=== PATIENT | female | born 1995 | race Caucasian/White ===

== ENCOUNTER 2019-04-29 01:22 | Outpatient (CLI) | payer BC ==
[2019-04-29 02:24] LABS: APPEARANCE,URINE CLOUDY; BILIRUBIN,URINE NEGATIVE (NEGATIVE); COLOR,URINE YELLOW; GLUCOSE, URINE NEGATIVE (NEGATIVE); KETONES,URINE NEGATIVE (NEGATIVE); LEUKOCYTE ESTERASE,URINE MODERATE (NEGATIVE); NITRITE,URINE NEGATIVE (NEGATIVE); PROTEIN,URINE NEGATIVE (NEGATIVE); URINE SPECIFIC GRAVITY 1.015; UROBILINOGEN,URINE NEGATIVE mg/dL (<2.0)
[2019-04-29 02:43] LABS: URINE AMPHETAMINES SCREEN NEGATIVE; URINE BARBITURATES SCREEN NEGATIVE; URINE BENZODIAZEPINES SCREEN NEGATIVE; URINE COCAINE SCREEN NEGATIVE; URINE MARIJUANA (THC) SCREEN NEGATIVE; URINE METHADONE SCREEN NEGATIVE; URINE PHENCYCLIDINE SCREEN NEGATIVE
[2019-04-29 02:53] LABS: T.VAGINALIS (WET MOUNT) NO TRICHOMONAS SEEN; YEAST (WET MOUNT) NO YEAST SEEN
[2019-04-29 02:54] LABS: EPITHELIALS (WET MOUNT) 3+ EPITHELIALS SEEN; RBCS (WET MOUNT) NO RBCS SEEN; WBCS (WET MOUNT) 1+ WBCS SEEN
[2019-04-29] MEDS ORDERED: HYDROXYZINE PAMOATE 50 MG CAPSULE ONE (03:37)
[2019-04-29] MEDS ORDERED: RINGERS SOLUTION,LACTATED 1,000 ML IV PRN (03:37)
[2019-04-29] MEDS ORDERED: HYDROXYZINE PAMOATE 50 MG CAPSULE PO ONE (04:00)
[2019-04-29 04:25] LABS: CHLAM PCR NOT DETECTED (NOT DETECT)
--- NOTE | 2019-04-29 07:22 | RADIOLOGY REPORT (SQ) ---
EXAM DESCRIPTION: US LIMITED COMPLETED DATE/TME: 04/29/2019 00:00 CLINICAL HISTORY: 23 years Female, R/O PTL 19w5d Comparison: None. TECHNIQUE/LIMITATION: Targeted OB sonogram for requested parameters only. Transabdominal and transvaginal. FINDINGS: Single IUP Cardiac activity: 171-bpm. EDISON: 13.1-cm Placenta: Anterior.. No demonstrated abruption or previa. Presentation: Vertex. Cervical length: 4.7-cm. Closed appearance. IMPRESSION: Targeted OB sonogram for requested parameters
== END 2019-04-29 06:32 | disposition home or self-care (01) ==
LOC: LC 01:22
PROVIDERS: ATTEND Student in an Organized Health Care Education/Training Program
PROC: 4A1HXCZ Monitoring of Products of Conception, Cardiac Rate, External Approach (ICD-10-PCS; principal; 2019-04-29)
DX: O47.02 False labor before 37 completed weeks of gestation, second trimester (principal); Z3A.19 19 weeks gestation of pregnancy
CPT/HCPCS: 76815; 80307; 81001; 87086; 87088; 87210; 87491; 87591

== ENCOUNTER 2019-09-08 09:16 | Inpatient (IN) | payer BC ==
[2019-09-08 09:44] LABS: APPEARANCE,URINE CLEAR; BILIRUBIN,URINE NEGATIVE (NEGATIVE); COLOR,URINE STRAW; GLUCOSE, URINE NEGATIVE (NEGATIVE); KETONES,URINE NEGATIVE (NEGATIVE); LEUKOCYTE ESTERASE,URINE NEGATIVE (NEGATIVE); NITRITE,URINE NEGATIVE (NEGATIVE); PROTEIN,URINE NEGATIVE (NEGATIVE); URINE SPECIFIC GRAVITY 1.006; UROBILINOGEN,URINE NEGATIVE mg/dL (<2.0)
[2019-09-08] MEDS ORDERED: RINGERS SOLUTION,LACTATED 1,000 ML IV PRN (09:49)
[2019-09-08 10:06] LABS: URINE AMPHETAMINES SCREEN NEGATIVE; URINE BARBITURATES SCREEN NEGATIVE; URINE BENZODIAZEPINES SCREEN NEGATIVE; URINE COCAINE SCREEN NEGATIVE; URINE MARIJUANA (THC) SCREEN NEGATIVE; URINE METHADONE SCREEN NEGATIVE; URINE PHENCYCLIDINE SCREEN NEGATIVE
--- NOTE | 2019-09-08 10:17 | Admission Physical ---
Datetime Report Generated by CPN: 09/08/2019 10:17 CURRENT ADMISSION Chief Complaint: Uterine Contractions; Suspected Ruptured Membranes; Decreased Movement Admit Impression : Term, Intrauterine ; Active Labor; Ruptured Membranes Admit Plan: Admit to Unit; Initiate Labor Protocol ALLERGIES Medication Allergies: No Medication Allergies: No Known Allergies (04/29/2019) Latex: No Latex Allergies OBSTETRICAL HISTORY EDC: 09/18/2019 00:00 : 2 Para: 1 Term: 1 SAB: 0 IAB: 0 Ectopic: 0 Livin Cesareans: 0 VBACs: 0 Multiple Births: 0 Gestational Diabetes: No Rh Sensitization: No Incompetent Cervix: No HUGO: No Infertility: No ART Treatment: No Uterine Anomaly: No IUGR: No Hx Previous C/S: No Macrosomia: No Hx Loss/Stillborn: No PIH: Yes Hx : No Placenta Previa/Abruption: No Depression/PP Depression: No PTL/PROM: No Post Hemorrhage: No Current Procedures: Ultrasound Obstetrical History Comments: G1- at 37 weeks, 5lbs 6oz male with gastroschesis G2- current SEE RECORDS Alcohol: No Marijuana : No Cocaine: No Other Illicit Drugs: No Cigarettes: Never Smoker. [id number] MEDICAL HISTORY Diabetes: No Blood Transfusion: No Pulmonary Disease (Asthma, TB): No Breast Disease: No Hypertension: No Crusher Feeder Surgery: No Heart Disease: No Hosp/Surgery: Yes Autoimmune Disorder: No Anesthetic Complications: No Kidney Disease: No Abnormal Pap Smear: No Neuro/Epilepsy: No Psychiatric Disorders: No Other Medical Diseases: No Hepatitis/Liver Disease: No Significant Family History: No Varicosities/Phlebitis: No Trauma/Violence : No Thyroid Dysfunction: No Medical History Comments: Childbirth PRK-eye surgery INFECTIOUS HISTORY Gonorrhea: No Genital Herpes: No Chlamydia: No Tuberculosis: No Syphilis: No Hepatitis: No HIV/AIDS Exposure: No Rash or Viral Illness: No HPV: No PHYSICAL EXAM General: Normal HEENT: Normal Neurologic: Normal Thyroid: Normal Heart: Normal Lungs: Normal Breast: Normal Back: Normal Abdomen: Normal Genitourinary Exam: Normal Extremities: Normal DTRs: Normal Pelvic Type: Adequate Vital Signs: Reviewed; Within Normal Limits VAGINAL EXAM Dilatation: 6 Effacement: 90 Station: -2 Contraction Comments: q2 MEMBRANES Pooling: Positive Membranes: Ruptured Amniotic Fluid Color: Clear FETUS A EGA: 38.4 Monitoring: External US FHR- Baseline: 125 Variability: Moderate 6-25bpm Accelerations: 15X15 Decelerations: None FHR Category: Category I Admit Comment: Pt presents via medica c/o having a gush of fluid at 0825. at 39 wks, GBS negative. SSE, +pooling noted of clear fluid. VE 6/90/-2, vtx. EFW 7 pounds. Pt considering an epidural. Position changes encouraged. Anticipate . Attending MD is Dr Gibbons. INFORMED CONSENT Assignment: Marychuy Gibbons MD Signature: with User ID: Brown : with User ID: Brown
[2019-09-08 10:23] LABS: ABSOLUTE EOSINOPHILS # (AUTO) 0.1 10^3/uL (0.0-0.6); ABSOLUTE LYMPHOCYTES (AUTO) 1.9 10^3/uL (0.5-4.7); ABSOLUTE MONOCYTES (AUTO) 0.6 10^3/uL (0.1-1.4); ABSOLUTE NEUT (AUTO) 6.9 10^3/uL (1.7-8.2); BASOPHILS % (AUTO) 0.3 % (0-2); EOSINOPHILS % (AUTO) 1.2 % (0-6); HEMATOCRIT 30.7 % (36.0-47.0); HEMOGLOBIN 10.6 g/dL (12.0-15.5); LYMPHOCYTES % (AUTO) 19.9 % (13-45); MEAN CORPUSCULAR HEMOGLOBIN 27.9 pg (27.0-33.4); MEAN CORPUSCULAR HGB CONC 34.7 g/dL (32.0-36.0); MEAN CORPUSCULAR VOLUME 80 fl (80-97); MONOCYTES % (AUTO) 6.1 % (3-13); PLATELET COUNT 252 10^3/uL (150-450); RED BLOOD COUNT 3.82 10^6/uL (3.72-5.28); RED CELL DISTRIBUTION WIDTH 14.4 % (11.5-14.0); SEGMENTED NEUTROPHILS % (AUTO) 72.5 % (42-78); TOTAL CELLS COUNTED % (AUTO) 100 %; WHITE BLOOD COUNT 9.5 10^3/uL (4.0-10.5)
[2019-09-08] MEDS ORDERED: OXYTOCIN 10 UNIT/ML VIAL ONE (10:52)
[2019-09-08] MEDS ORDERED: MISOPROSTOL 0.2 MG TABLET ONE (10:52)
[2019-09-08] MEDS ORDERED: OXYTOCIN/0.9 % SODIUM CHLORIDE 30 UNIT/500 ML RTUINJ ONE (10:52)
[2019-09-08] MEDS ORDERED: LIDOCAINE 1% INJ-PF (10 MG/ML) 30 ML SDV ONE (10:52)
[2019-09-08] MEDS ORDERED: EPHEDRINE SULFATE INJ 50 MG/1 ML AMPULE ONE (12:02)
[2019-09-08] MEDS ORDERED: FENTANYL/BUPIVACAINE/NS/PF 300 MCG/150 ML RTUINJ EPI ONE (12:02)
[2019-09-08] MEDS ORDERED: BUPIVACAINE HCL 0.25 % INJ/PF (2.5 MG/1 ML) 30 ML VIAL ONE (12:02)
[2019-09-08] MEDS ORDERED: PSEUDOEPHEDRINE HCL 30 MG TABLET PO PRN (13:47)
[2019-09-08] MEDS ORDERED: MAGNESIUM HYDROXIDE SUSP 30 ML UDCUP PO PRN (13:47)
[2019-09-08] MEDS ORDERED: ACETAMINOPHEN 650 MG SUPP.RECT PR PRN (13:47)
[2019-09-08] MEDS ORDERED: BENZOCAINE/MENTHOL AEROSOL SPRAY 56 ML TOP PRN (13:47)
[2019-09-08] MEDS ORDERED: DIPHENHYDRAMINE HCL 25 MG CAPSULE PO PRN (13:47)
[2019-09-08] MEDS ORDERED: PROMETHAZINE HCL 25 MG SUPP.RECT PR PRN (13:47)
[2019-09-08] MEDS ORDERED: NA PHOS,M-B/NA PHOS,DI-BA (ADULT) 133 ML ENEMA PR PRN (13:47)
[2019-09-08] MEDS ORDERED: ACETAMINOPHEN WITH CODEINE #3 TABLET PO PRN ×2 (13:47)
[2019-09-08] MEDS ORDERED: ZOLPIDEM TARTRATE 5 MG TABLET PO PRN (13:47)
[2019-09-08] MEDS ORDERED: GLYCERIN/WITCH HAZEL LEAF 1 EACH MED..WIPE TP PRN (13:47)
[2019-09-08] MEDS ORDERED: DIBUCAINE 1% OINTMENT 28 GM TP PRN (13:47)
[2019-09-08] MEDS ORDERED: MEASLES,MUMPS&RUBELLA VACC/PF 0.5 ML VIAL SUBCUT PRN (13:47)
[2019-09-08] MEDS ORDERED: ACETAMINOPHEN 325 MG TABLET PO PRN (13:47)
[2019-09-08] MEDS ORDERED: DIPH/PERTUSS(ACELL)/TETANUS VAC/PF 0.5 ML SYR (>=10YO) IM PRN (13:47)
[2019-09-08] MEDS ORDERED: PROMETHAZINE HCL 25 MG TABLET PO PRN (13:47)
[2019-09-08] MEDS ORDERED: PROMETHAZINE HCL INJ 25 MG/1 ML VIAL IV PRN (13:47)
[2019-09-08] MEDS ORDERED: IBUPROFEN 800 MG TABLET ONE (13:51)
[2019-09-08] MEDS: IBUPROFEN 800 MG TABLET PO SCH ×2 (16:36→22:05)
[2019-09-08] MEDS: FERROUS SULFATE 325 MG TABLET PO SCH (17:21)
[2019-09-08] MEDS: DOCUSATE SODIUM 100 MG CAPSULE PO SCH (17:22)
--- NOTE | 2019-09-08 17:44 | Delivery Summary ---
Del Sum A-C Datetime Report Generated by CPN: 09/08/2019 17:44 DELIVERY PERSONNEL DELIVERY PERSONNEL: [id number] Delivery Doctor:: Marychuy Gibbons MD Labor and Delivery Nurse:: Laura Burton RNhydraulic dredge operator Nurse:: CAMILLE Finch Nursery Nurse:: Aydee Purdy RN Pack Operator/PULL OVER MACHINE OPERATOR: Maria M Rushing, TAX CONSULTANT MATERNAL INFORMATION Delivery Anesthesia: Epidural Medications After Delivery: Pitocin Bolus-Please Comment; Pitocin 30 Units in 500ml NS/D5W Meds After Delivery Comment: pitocin 30 units in 500 ml NS Estimated Blood Loss (ml): 100 Delivery QBL: 150 Maternal Complications: None LABOR SUMMARY EDC: 09/18/2019 00:00 No. Babies in Womb: 1 Attempted: Yes Labor Anesthesia: Epidural LABOR INFORMATION Reason for Induction: Not Applicable Onset of Labor: 09/08/2019 08:25 Complete Dilatation: 09/08/2019 13:23 Oxytocin: N/A Group B Beta Strep: Negative Antibiotics # of Doses: N/A Antibiotics Time of Last Dose: N/A Name of Antibiotic Given: N/A Steroids Given: None Reason Steroids Not Administered: Not Applicable Other Reason Not Administered: n/a MEMBRANES Membranes Rupture Method: Spontaneous Rupture of Membranes: 09/08/2019 08:25 Length of Rupture (hr): 5.07 Amniotic Fluid Color: Clear Amniotic Fluid Amount: Moderate Amniotic Fluid Odor: Normal STAGES OF LABOR Stage 1 hr: 4 Stage 1 min: 58 Stage 2 hr: 0 Stage 2 min: 6 Stage 3 hr: 0 Stage 3 min: 2 Total Time in Labor hr: 5 Total Time in Labor min: 6 VAGINAL DELIVERY Episiotomy: None Laceration #1: None Laceration Extension #1: N/A Laceration Repair: Not Applicable Sponge Count Correct: Yes Sharps Count Correct: N/A BABY A INFORMATION Delivery Date/Time: 09/08/2019 13:29 Method of Delivery: Vaginal Nurse Controlled Delivery: No Born in Route : No : N/A Forceps: N/A Vacuum Extraction: N/A Shoulder Dystocia : No PRESENTATION/POSITION BABY A Presentation: Cephalic Cephalic Presentation: Vertex Vertex Position: Left Occipital Anterior Breech Presentation: N/A PLACENTA INFORMATION BABY A Placenta Delivery Time : 09/08/2019 13:31 Placenta Method of Delivery: Spontaneous Placenta Status: Delivered SCORES BABY A Heart Rate 1 min: >100 bpm Resp Effort 1 min: Good Cry Reflex Irritability 1 min: Cough or Sneeze or Pulls Away Muscle Tone 1 min: Active Motion Color 1 min: Blue/Pale Resuscitation Effort 1 min: Tactile Stimulation SCORE 1 MIN: 8 Heart Rate 5 min: >100 bpm Resp Effort 5 min: Good Cry Reflex Irritability 5 min: Cough or Sneeze or Pulls Away Muscle Tone 5 min: Active Motion Color 5 min: Body [place], Extremities Blue SCORE 5 MIN: 9 INFANT INFORMATION BABY A Gestational Age at Delivery: 38.4 Gestational Status: Early Term- 37- 38.6 Weeks Outcome : Liveborn Condition : Stable Infant Sex: Male IDENTIFICATION BABY A Infant Verification Date/Time: 09/08/2019 13:57 ID Band Number: [id number] Mother's Name Verified: Yes Infant RN Verifying : Rochelle, RN and T. Arcenio, RN WEIGHT/LENGTH BABY A Infant Birthweight (gm): 3666 Weight (lb): 8 Infant Weight (oz): 1 Length (in): 20.00 Infant Length (cm): 50.80 CORD INFORMATION BABY A No. Cord Vessels: 3 Nuchal Cord : Around Neck x1, Loose Cord Blood Taken: Yes-For Storage (Mom's Blood type +) Infant Suction: Mouth; Nose ASSESSMENT BABY A Skin to Skin: Yes Skin to Skin Time (min): 75 BABY B INFORMATION : N/A SIGNATURES Signature: with User ID: Nelly
[2019-09-08] MEDS: FAMOTIDINE 20 MG TABLET PO SCH (22:05)
[2019-09-09] MEDS: IBUPROFEN 800 MG TABLET PO SCH ×3 (05:12→22:00)
[2019-09-09 07:01] LABS: HEMATOCRIT 32.3 % (36.0-47.0); HEMOGLOBIN 11.1 g/dL (12.0-15.5); MEAN CORPUSCULAR HEMOGLOBIN 27.5 pg (27.0-33.4); MEAN CORPUSCULAR HGB CONC 34.5 g/dL (32.0-36.0); MEAN CORPUSCULAR VOLUME 80 fl (80-97); PLATELET COUNT 250 10^3/uL (150-450); RED BLOOD COUNT 4.06 10^6/uL (3.72-5.28); RED CELL DISTRIBUTION WIDTH 14.5 % (11.5-14.0); WHITE BLOOD COUNT 16.4 10^3/uL (4.0-10.5)
[2019-09-09] MEDS: PRENATAL VITAMIN W DHA CAPSULE PO SCH (10:18)
[2019-09-09] MEDS: DOCUSATE SODIUM 100 MG CAPSULE PO SCH ×2 (10:18→19:52)
[2019-09-09] MEDS: FAMOTIDINE 20 MG TABLET PO SCH ×2 (10:18→21:40)
[2019-09-09] MEDS: FERROUS SULFATE 325 MG TABLET PO SCH ×2 (10:18→19:52)
[2019-09-09] MEDS: SENNOSIDES/DOCUSATE 8.6-50 MG 1 EACH TABLET PO SCH (10:19)
--- NOTE | 2019-09-09 16:02 | PDOC PROGRESS REPORT ---
Subjective-OB Progress Note for:: 09/09/19 Subjective: 23yo G2 now P1 s/p ppd1. Ambulating, voiding and without difficulty. Reports pain well controlled with medication, no concerns today. Would like early discharge if baby is able to go home. Physical Exam (OB) Vital Signs: Temp Pulse Resp BP Pulse Ox 97.8 F 73 18 127/67 H 100 09/09/19 07:42 09/09/19 07:42 09/09/19 07:42 09/09/19 07:42 09/09/19 07:42 Intake & Output 09/08/19 09/09/19 09/10/19 06:59 06:59 06:59 Intake Total 2039 Balance 2039 Weight 83.4 kg - General General Appearance: Appears well In distress: None - PIH/Pre-Eclampsia DTR's: 1 + Clonus: Negative Headache: Absent Epigastric Pain: No Visual Changes: No - Episiotomy/Laceration Site Condition: N/A - Lochia Lochia Amount: Scant < 10 ml Lochia Color: Rubra/Red - Abdomen Description: Soft, Round Hernia Present: No Fundal Description: Firm, Midline Fundal Height: u/u - u/2 - Respiratory Respiratory Status: No respiratory distress - Extremities Upper extremity: Normal inspection Lower extremities: Normal inspection - Neurological Cognition: Normal Orientation: AAOx4 - Psychological Associated symptoms: Normal affect, Normal mood Objective-Diagnostic Laboratory: 09/09/19 06:28 09/09/19 06:28 WBC 16.4 H RBC 4.06 Hgb 11.1 L Hct 32.3 L MCV 80 MCH 27.5 MCHC 34.5 RDW 14.5 H Plt Count 250 Assessment and Plan(PN) - Assessment and Plan (1) Vaginal delivery Is this a current diagnosis for this admission?: Yes Plan: routine pp care (2) Anemia complicating , third trimester Is this a current diagnosis for this admission?: Yes Plan: increase dietary iron and FeSO4 BID - Time Spent with Patient Time with patient: Less than 15 minutes Medications reviewed and adjusted accordingly: Yes - Disposition Anticipated Discharge: Home Within: within 24 hours - ok to discharge early if baby is being discharged- reviewed with Dr Mars
[2019-09-10] MEDS: IBUPROFEN 800 MG TABLET PO SCH ×3 (06:00→14:32)
[2019-09-10 08:43] VITALS: BP 134/78
[2019-09-10] MEDS: FAMOTIDINE 20 MG TABLET PO SCH (09:08)
[2019-09-10] MEDS: PRENATAL VITAMIN W DHA CAPSULE PO SCH (09:08)
[2019-09-10] MEDS: FERROUS SULFATE 325 MG TABLET PO SCH (09:08)
[2019-09-10] MEDS: DOCUSATE SODIUM 100 MG CAPSULE PO SCH (09:08)
[2019-09-10] MEDS: SENNOSIDES/DOCUSATE 8.6-50 MG 1 EACH TABLET PO SCH (09:09)
--- NOTE | 2019-09-10 15:18 | PDOC DISCHARGE SUMMARY ---
Impression - Admit/DC Date/PCP Admission Date/Primary Care Provider: 09/08/19 09:50 PANCHO DEL CASTILLO MD Discharge Date: 09/10/19 - Discharge Diagnosis (1) Vaginal delivery Is this a current diagnosis for this admission?: Yes (2) Anemia complicating , third trimester Is this a current diagnosis for this admission?: Yes - Assessment Summary: 23yo G2 now P1 s/p ppd 2 stable and ready for discharge, understands warning s/s and reasons to seek immediate care - Additional Information Resuscitation Status: Full Code Discharge Diet: As Tolerated, Regular Discharge Activity: Activity As Tolerated, No Lifting Over 10 Pounds, Pelvic Rest, No tub bath, Walk Frequently Referrals: PRABHU OWEN MD [ACTIVE STAFF] - (follow up in 4 weeks. Call the office and make an appointment. ) PANCHO DEL CASTILLO MD [Primary Care Provider] - Prescriptions: Ibuprofen [Motrin 800 mg Tablet] 800 mg PO Q8HP PRN #20 tablet PRN Reason: Abdominal Cramping Vit/Dha [ Multi + Dha Capsule] 1 cap PO DAILY #90 capsule Home Medications: Ibuprofen [Motrin 800 mg Tablet] 800 mg PO Q8HP PRN #20 tablet 09/09/19 Vit/Dha [ Multi + Dha Capsule] 1 cap PO DAILY #90 capsule 09/09/19 Results Laboratory Results: WBC 16.4 10^3/uL (4.0-10.5) H 09/09/19 06:28 RBC 4.06 10^6/uL (3.72-5.28) 09/09/19 06:28 Hgb 11.1 g/dL (12.0-15.5) L 09/09/19 06:28 Hct 32.3 % (36.0-47.0) L 09/09/19 06:28 MCV 80 fl (80-97) 09/09/19 06:28 MCH 27.5 pg (27.0-33.4) 09/09/19 06:28 MCHC 34.5 g/dL (32.0-36.0) 09/09/19 06:28 RDW 14.5 % (11.5-14.0) H 09/09/19 06:28 Plt Count 250 10^3/uL (150-450) 05/13/20 06:28 Lymph % (Auto) 19.9 % (13-45) 09/08/19 10:00 [place] % (Auto) 6.1 % (3-13) 09/08/19 10:00 Eos % (Auto) 1.2 % (0-6) 09/08/19 10:00 Baso % (Auto) 0.3 % (0-2) 09/08/19 10:00 Absolute Neuts (auto) 6.9 10^3/uL (1.7-8.2) 09/08/19 10:00 Absolute Lymphs (auto) 1.9 10^3/uL (0.5-4.7) 09/08/19 10:00 Absolute Monos (auto) 0.6 10^3/uL (0.1-1.4) 09/08/19 10:00 Absolute Eos (auto) 0.1 10^3/uL (0.0-0.6) 09/08/19 10:00 Absolute Basos (auto) 0.0 10^3/uL (0.0-0.2) 09/08/19 10:00 Seg Neutrophils % 72.5 % (42-78) 09/08/19 10:00 Urine Color STRAW 09/08/19 09:28 Urine Appearance CLEAR 09/08/19 09:28 Urine pH 7.0 (5.0-9.0) 09/08/19 09:28 Ur Specific [place] 1.006 09/08/19 09:28 Urine Protein NEGATIVE mg/dL (NEGATIVE) 09/08/19 09:28 Urine Glucose (UA) NEGATIVE mg/dL (NEGATIVE) 09/08/19 09:28 Urine Ketones NEGATIVE mg/dL (NEGATIVE) 09/08/19 09:28 Urine Blood NEGATIVE (NEGATIVE) 09/08/19 09:28 Urine Nitrite NEGATIVE (NEGATIVE) 09/08/19 09:28 Urine Bilirubin NEGATIVE (NEGATIVE) 09/08/19 09:28 Urine Urobilinogen NEGATIVE mg/dL (<2.0) 09/08/19 09:28 Ur Leukocyte Esterase NEGATIVE (NEGATIVE) 09/08/19 09:28 Urine Ascorbic Acid NEGATIVE (NEGATIVE) 09/08/19 09:28 Urine Opiates Screen NEGATIVE 09/08/19 09:28 Urine Methadone Screen NEGATIVE 09/08/19 09:28 Ur Barbiturates Screen NEGATIVE 09/08/19 09:28 Ur Phencyclidine Scrn NEGATIVE 09/08/19 09:28 Ur Amphetamines Screen NEGATIVE 09/08/19 09:28 U Benzodiazepines Scrn NEGATIVE 09/08/19 09:28 Urine Cocaine Screen NEGATIVE 09/08/19 09:28 U Marijuana (THC) Screen NEGATIVE 09/08/19 09:28 RPR NONREACTIVE (NONREACTIVE) 09/08/19 10:00 Blood Type A POSITIVE 09/08/19 10:00 Antibody Screen NEGATIVE 09/08/19 10:00
== END 2019-09-10 16:24 | disposition home or self-care (01) | DRG 807 ==
LOC: LC 09:16 → LR 09:50 → 2S 16:00
PROVIDERS: ADMIT Obstetrics & Gynecology; ATTEND Obstetrics & Gynecology
PROC: 10E0XZZ Delivery of Products of Conception, External Approach (ICD-10-PCS; principal; 2019-09-08)
DX: O36.8130 Decreased fetal movements, third trimester, not applicable or unspecified (principal); Z37.0 Single live birth; O99.02 Anemia complicating childbirth; O69.81X0 Labor and delivery complicated by cord around neck, without compression, not applicable or unspecified; D64.9 Anemia, unspecified; Z28.21 Immunization not carried out because of patient refusal; Z3A.38 38 weeks gestation of pregnancy
CPT/HCPCS: 1967; 36415; 80307; 81005; 85025; 85027; 86592; 86850; 86900; 86901; 94760; J2590; J3010; J3490

== ENCOUNTER 2019-09-11 16:22 | Emergency (ER) | payer BC ==
--- NOTE | 2019-09-11 16:36 | ER Document Report ---
ED Medical Screen (RME) - General Chief Complaint: Headache Stated Complaint: HEADACHE Time Seen by Provider: 09/11/19 16:30 Primary Care Provider: PANCHO DEL CASTILLO MD [Primary Care Provider] - Follow up as needed Mode of Arrival: Ambulatory Information source: Patient Notes: Patient is a 23-year-old female who presents to the emergency department with complaints of headache. Patient reports headache started yesterday. She states it feels like a terrible pressure in her head. She reports she had a vaginal delivery on 09/08/2019. She states she called her ORBITREAD OPERATOR and they believe this is related to the epidural she received. Patient denies any photophobia or phonophobia. No neurological deficits noted. I have greeted and performed a rapid initial assessment of this patient. A comprehensive ED assessment and evaluation of the patient, analysis of test results and completion of the medical decision making process will be conducted by additional ED providers. I have specifically instructed the patient or family members with the patient to immediately return to any nursing staff should anything change in the patient's condition or with their chief complaint. TRAVEL OUTSIDE OF THE [place] IN LAST 30 DAYS: No - Related Data Allergies/Adverse Reactions: No Known Allergies Allergy (Unverified 04/29/19 01:33) Physical Exam - Vital signs Vitals: Temp Pulse Resp BP Pulse Ox 98 F 85 18 136/92 H 100 09/11/19 16:25 09/11/19 16:25 09/11/19 16:25 09/11/19 16:25 09/11/19 16:25 Course - Vital Signs Vital signs: Temp Pulse Resp BP Pulse Ox 98 F 85 18 136/92 H 100 09/11/19 16:25 09/11/19 16:25 09/11/19 16:25 09/11/19 16:25 09/11/19 16:25 Doctor's Discharge - Discharge Referrals: PANCHO DEL CASTILLO MD [Primary Care Provider] - Follow up as needed
--- NOTE | 2019-09-11 18:22 | ER Document Report ---
ED General - General Chief Complaint: Headache Stated Complaint: HEADACHE Time Seen by Provider: 09/11/19 16:30 Primary Care Provider: PANCHO DEL CASTILLO MD [ACTIVE STAFF] - Follow up as needed Mode of Arrival: Ambulatory TRAVEL OUTSIDE OF THE [place] IN LAST 30 DAYS: No - HPI Notes: Patient is a 23-year-old female who had a vaginal delivery on September 07. She had epidural. She actually states she had 2 as 1 did not take. She states that since being in the hospital she has had a headache. It has gotten progressively worse. She states that it is relieved by being supine, is much more significant when she is upright. She denies any photophobia, no phonophobia. No fevers or chills. No nausea or vomiting. Her pain is at the top of her head and in the frontal region. She is currently breast-feeding. - Related Data Allergies/Adverse Reactions: No Known Allergies Allergy (Unverified 04/29/19 01:33) Home Medications: denies Past Medical History - General Information source: Patient - Social History Smoking Status: Never Smoker Chew tobacco use (# tins/day): No Frequency of alcohol use: None Drug Abuse: None Family History: Reviewed & Not Pertinent Patient has homicidal ideation: No Review of Systems - Review of Systems Neurological/Psychological: See HPI -: Yes All other systems reviewed and negative Physical Exam - Vital signs Vitals: Temp Pulse Resp BP Pulse Ox 98 F 85 18 136/92 H 100 09/11/19 16:25 09/11/19 16:25 09/11/19 16:25 09/11/19 16:25 09/11/19 16:25 - Notes Notes: Vital signs reviewed, please refer to chart. Head is normocephalic, atraumatic. Pupils equal round, reactive to light. Neck is supple without meningismus. Heart is regular rate and rhythm. Lungs are clear to auscultation bilaterally. Abdomen is soft, nontender, normoactive bowel sounds throughout. Extremities without cyanosis, clubbing. Posterior calves are nontender. Peripheral pulses are equal. Skin is warm and dry. She has puncture severino from prior epidurals noted at approximately the T12-L1 region. No surrounding edema, erythema, induration. Patient is awake, alert, oriented x3. Cranial nerves II - XII are grossly intact without focal neurological deficits. Strength is plus 5 out of 5 bilateral upper and lower extremities. Sensation is intact. Reflexes symmetrical. Intact [id number], rapid alternating movements, [id number]. Course - Re-evaluation Re-evalutation: 09/11/19 18:22 Patient presents to the emergency department for evaluation. She is initially seen through triage. IV was placed. This patient and her history are most consistent with a spinal headache. I contacted anesthesia, they will evaluate the patient and consider blood patch. Patient is stable at this time. 09/11/19 19:06 Edmund aCvazos came to the emergency department, performed a blood patch. Consent had been signed and placed on the chart. Patient tolerated this well, had complete relief of her pain. We will discharge her home. She is to follow-up with primary care, return to the ED with worsening. - Vital Signs Vital signs: Temp Pulse Resp BP Pulse Ox 98.3 F 83 18 116/78 98 09/11/19 19:36 09/11/19 19:36 09/11/19 19:36 09/11/19 19:36 09/11/19 19:36 Discharge - Discharge Clinical Impression: Spinal puncture headache Condition: Stable Disposition: HOME, SELF-CARE Instructions: "Blood Patch" Instructions ([facility]), Post-Spinal Headache ([facility]) Additional Instructions: Rest, stay well-hydrated. Follow-up with primary care next week. Return to the emergency department for worsening or new concerning symptoms of any sort. Referrals: PANCHO DEL CASTILLO MD [ACTIVE STAFF] - Follow up as needed
[2019-09-11 19:37] VITALS: BP 116/78
== END 2019-09-11 19:37 | disposition home or self-care (01) ==
LOC: ER 16:22
DX: O89.4 Spinal and epidural anesthesia-induced headache during the puerperium (principal); G97.1 Other reaction to spinal and lumbar puncture; R51 Headache
CPT/HCPCS: 99283